=== PATIENT | male | born 1945 | race Caucasian/White ===

== ENCOUNTER → 2017-08-01 | Outpatient (CLI) | payer MEDICARE, OTHER ==
[~2017-08-01] MED LIST: ASPI-496 PO; CLOP75TA52 PO; LISI-167 PO; MULT1TAB60 PO; SIMV40TA3 PO; SOTA120T26 PO
== END | disposition home or self-care (01) ==
LOC: RAD 10:42
PROVIDERS: ATTEND Family Medicine
DX: M25.462 Effusion, left knee (principal)

== ENCOUNTER → 2017-08-24 | Outpatient (CLI) | payer MEDICARE, OTHER | END | disposition home or self-care (01) | LOC: CFH 08:30 | PROVIDERS: ATTEND Family Medicine | DX: M17.12 Unilateral primary osteoarthritis, left knee (principal); M94.262 Chondromalacia, left knee; R60.0 Localized edema ==

== ENCOUNTER → 2018-07-01 | Outpatient (CLI) | payer MEDICARE, OTHER | END | disposition home or self-care (01) | LOC: CFH 08:44 | PROVIDERS: ATTEND Internal Medicine Cardiovascular Disease | DX: I10 Essential (primary) hypertension (principal); E78.5 Hyperlipidemia, unspecified; Z87.891 Personal history of nicotine dependence | CPT/HCPCS: 93306 ==

== ENCOUNTER 2018-09-30 08:52 | Day surgery (SDC) | payer MEDICARE, OTHER ==
[~2018-09-30] VITALS: Ht 180.3 cm; Wt 79.4 kg
[2018-09-30 09:24] VITALS: BP 134/68
[2018-09-30] MEDS ORDERED: CEFAZOLIN PMX 1GM/50ML 50 ML IV ONE (09:30)
[2018-09-30] MEDS ORDERED: CEFAZOLIN PMX 1GM/50ML 50 ML ONE (09:32)
[2018-09-30] MEDS: SODIUM CHLORIDE 0.9% 1,000 ML IV SCH ×2 (09:46→09:47)
[2018-09-30] MEDS ORDERED: LIDOCAINE/PF 1%, 30ML ONE (10:45)
[2018-09-30] MEDS ORDERED: MIDAZOLAM 1 MG/ML, 5ML ONE (11:25)
[2018-09-30] MEDS ORDERED: FLUMAZENIL 0.1 MG/1 ML, 5ML ONE (11:25)
[2018-09-30] MEDS ORDERED: NALOXONE 1 MG/ML, 2ML ONE (11:25)
[2018-09-30] MEDS ORDERED: FENTANYL PF 100 MCG/2ML ONE (11:25)
== END 2018-09-30 13:15 | disposition home or self-care (01) ==
LOC: OUT 08:52
PROVIDERS: ATTEND Specialist
DX: Z45.2 Encounter for adjustment and management of vascular access device (principal); C91.10 Chronic lymphocytic leukemia of B-cell type not having achieved remission; I10 Essential (primary) hypertension; E78.5 Hyperlipidemia, unspecified; Z87.39 Personal history of other diseases of the musculoskeletal system and connective tissue; Z98.890 Other specified postprocedural states; Z87.891 Personal history of nicotine dependence
CPT/HCPCS: 36561; 76937; 77001; 99156; 99157; C1788; J0690; J1642; J2250; J3010; J3490; J7030; J2310

== ENCOUNTER → 2019-09-26 | Outpatient (CLI) | payer MEDICARE, OTHER | END | disposition home or self-care (01) | LOC: CFH 07:19 | PROVIDERS: ATTEND Family Medicine | DX: M47.812 Spondylosis without myelopathy or radiculopathy, cervical region (principal); M48.02 Spinal stenosis, cervical region; Z87.891 Personal history of nicotine dependence; Z85.6 Personal history of leukemia | CPT/HCPCS: 72050 ==

== ENCOUNTER 2019-10-14 09:20 | Outpatient (CLI) | payer MEDICARE, OTHER | END 2019-10-14 23:59 | disposition home or self-care (01) | LOC: CFH 09:20 | PROVIDERS: ATTEND Family Medicine | DX: M47.812 Spondylosis without myelopathy or radiculopathy, cervical region (principal); M48.02 Spinal stenosis, cervical region; M47.813 Spondylosis without myelopathy or radiculopathy, cervicothoracic region; Z87.891 Personal history of nicotine dependence | CPT/HCPCS: 72141 ==

== ENCOUNTER → 2020-08-25 | Outpatient (CLI) | payer MEDICARE, OTHER ==
[~2020-08-25] MED LIST changes: +MULT-449 PO; -MULT1TAB60 PO; +SIMV40TA20 PO; -SIMV40TA3 PO
== END | disposition home or self-care (01) ==
LOC: CFH 08:19
PROVIDERS: ATTEND Internal Medicine Cardiovascular Disease
DX: I08.8 Other rheumatic multiple valve diseases (principal); I10 Essential (primary) hypertension
CPT/HCPCS: 93306